=== PATIENT | female | born 1935 | race Caucasian/White ===

== ENCOUNTER → 2016-08-23 | Outpatient (CLI) | payer MEDICARE, OTHER ==
[~2016-08-23] VITALS: Ht 167.6 cm; Wt 84.4 kg
[~2016-08-23] MED LIST: ALLERGY RELIEF10 M1 PO; COLACE 100MG C100 MG PO; CYMBALTA30 MG PO; GLIPIZIDE ER2.5 MG PO; HYDROCODON-ACE1 EAC2 PO; IPRAT-ALBUT 0.5-3 ML INH; KEFLEX500 MG PO; LIORESAL TAB 1010 MG PO; LORTAB PO; MELOXICAM7.5 MG PO; MIRALAX PACK 171 PKT PO; MOBIC7.5 MG PO; NEURONTIN 400400 MG PO; NEURONTIN800 MG PO; NORCO 5-325 TA1 EACH PO; PREDNISONE 10 M10 MG PO; PROTONIX40 MG PO; REQUIP0.25 MG PO; RESTORIL 30 MG30 MG PO; SYNTHROID112 MCG PO; TRAZODONE HCL50 MG PO; TYLENOL 325MG325 MG PO; TYLENOL W/CODEIN1 E1 PO; VIBRAMYCIN 100100 MG PO; VITAMIN B-1000 MCG/M IM; ZANTAC 150 MG150 MG PO
== END ==
LOC: OPSV 10:00
DX: D83.9 Common variable immunodeficiency, unspecified (principal)
CPT/HCPCS: 96365; 96366; J1572; Q0163

== ENCOUNTER 2016-09-01 18:31 | Emergency (ER) | payer MEDICARE, OTHER ==
[~2016-09-01 18:31] MED LIST changes: -GLIPIZIDE ER2.5 MG PO; -NORCO 5-325 TA1 EACH PO
[2016-09-01 20:38] LABS: HEMOGLOBIN 12.9 gm/dl (12.3-15.3); RED BLOOD COUNT 4.19 M/UL (4.00-5.10); WHITE BLOOD COUNT 8.7 K/UL (4.5-11.0)
[2017-01-08] MEDS ORDERED: GLIPIZIDE ER2.5 MG PO (11:55)
[2017-01-08] MEDS ORDERED: NORCO 5-325 TA1 EACH PO (16:53)
== END 2016-09-01 23:27 | disposition home or self-care (01) ==
LOC: ER1 18:31
PROVIDERS: Family Medicine
DX: R10.13 Epigastric pain (principal); R06.02 Shortness of breath; E11.9 Type 2 diabetes mellitus without complications; Z86.79 Personal history of other diseases of the circulatory system; Z90.49 Acquired absence of other specified parts of digestive tract; Z85.038 Personal history of other malignant neoplasm of large intestine; Z88.0 Allergy status to penicillin; Z88.1 Allergy status to other antibiotic agents; Z88.8 Allergy status to other drugs, medicaments and biological substances; Z79.899 Other long term (current) drug therapy
CPT/HCPCS: 36415; 71020; 80053; 82550; 82553; 83874; 83880; 84484; 85025; 93005; 94664; 99285; C9113

== ENCOUNTER → 2016-09-20 | Outpatient (CLI) | payer MEDICARE, OTHER ==
[~2016-09-20] VITALS: Ht 167.6 cm; Wt 84.4 kg
[~2016-09-20] MED LIST changes: +GLIPIZIDE ER2.5 MG PO; +NORCO 5-325 TA1 EACH PO
== END ==
LOC: OPSV 09:50
DX: D83.9 Common variable immunodeficiency, unspecified (principal)
CPT/HCPCS: 96365; 96366; J1572; Q0163

== ENCOUNTER → 2016-10-20 | Outpatient (CLI) | payer MEDICARE, OTHER ==
[~2016-10-20] VITALS: Ht 167.6 cm; Wt 84.4 kg
== END ==
LOC: OPSV 10-18 10:00
DX: D83.9 Common variable immunodeficiency, unspecified (principal)
CPT/HCPCS: 96365; 96366; J1568; Q0163

== ENCOUNTER → 2016-11-29 | Outpatient (CLI) | payer MEDICARE, OTHER ==
[~2016-11-29] VITALS: Ht 167.6 cm; Wt 84.4 kg
== END ==
LOC: OPSV 10:00
DX: D83.9 Common variable immunodeficiency, unspecified (principal)
CPT/HCPCS: 96365; 96366; J1568; Q0163

== ENCOUNTER 2017-02-16 17:50 | Emergency (ER) | payer MEDICARE, OTHER | END 2017-02-16 21:00 | disposition home or self-care (01) | LOC: ER1 17:50 | DX: S92.352A Displaced fracture of fifth metatarsal bone, left foot, initial encounter for closed fracture (principal); S80.812A Abrasion, left lower leg, initial encounter; E11.9 Type 2 diabetes mellitus without complications; J44.9 Chronic obstructive pulmonary disease, unspecified; Z88.0 Allergy status to penicillin; Z88.8 Allergy status to other drugs, medicaments and biological substances; W10.9XXA Fall (on) (from) unspecified stairs and steps, initial encounter; Y92.009 Unspecified place in unspecified non-institutional (private) residence as the place of occurrence of the external cause | CPT/HCPCS: 73502; 73552; 73564; 73610; 73630; 82962; 99283 ==

== ENCOUNTER 2020-07-16 13:30 | Observation (INO) | payer MEDICARE, OTHER ==
[~2020-07-16] VITALS: Ht 167.6 cm; Wt 88.9 kg
[~2020-07-16 13:30] MED LIST changes: +ADVAIR HFA 230-28 GM INH; +AMITIZA24 MCG PO; +AZITHROMYCIN250 MG PO; +BACTRIM DS TAB1 EACH PO; +BENTYL 10MG CAP10 MG PO; +BIOTIN2500 MCG PO; +CYMBALTA60 MG PO; +DALIRESP500 MCG PO; +ELMIRON100 MG PO; +FLONASE ALLER15.8 ML; +GEODON20 MG PO; +INVANZ 1 GM VIAL1 GM IV; +JANUVIA100 MG PO; +KLOR-CON M1010 MEQ PO; +LASIX20 MG PO; +LEVOFLOXACIN500 MG PO; +LOPRESSOR 25 MG25 MG PO; +MACRODANTIN100 MG PO; +MEDROL DOSEPAK 24 MG PO; +MULTIVITAMINS1 EAC1 PO; +NEURONTIN400 MG PO; +PERCOCET 5-3251 EACH PO; +PRAMIPEXOLE DIHY1 MG PO; +PREDNISONE 20 M20 MG PO; +PREDNISONE10 MG PO; +PREDNISONE20 MG PO; +PROTONIX 40 MG40 M1 PO; -REQUIP0.25 MG PO; +REQUIP3 MG PO; +REXULTI 1 MG PO; +ROPINIROLE HCL0.5 MG PO; +SINGULAIR10 MG PO; +SPIRIVA HANDIH18 MCG INH; +SYMBICORT 16010.2 GM INH; +TESSALON PERLE100 MG PO; +TRAZODONE HCL100 MG PO; -TRAZODONE HCL50 MG PO; +TYLENOL PM EX-1 EACH PO; +VIBRAMYCIN100 MG PO; -VITAMIN B-1000 MCG/M IM; +VITAMIN C 500500 MG PO; +XYZAL5 MG PO; +ZOFRAN ODT 4 MG4 MG PO; +ZOFRAN4 MG PO
[2020-07-16 14:19] LABS: HEMOGLOBIN 10.2 gm/dl (12.3-15.3); RED BLOOD COUNT 4.49 M/UL (4.00-5.10); WHITE BLOOD COUNT 9.4 K/UL (4.5-11.0)
[2020-07-16 15:07] LABS: BUN/CREATININE RATIO 16 (0-10)
[2020-07-16] MEDS ORDERED: ASPIRIN EC81 MG PO (20:29)
[2020-07-16] MEDS ORDERED: MIRAPEX1 MG PO (20:30)
[2020-07-16] MEDS ORDERED: CYMBALTA60 MG PO (20:31)
[2020-07-16] MEDS ORDERED: LOPRESSOR 25 MG25 MG PO (20:32)
[2020-07-16] MEDS ORDERED: VALIUM5 MG PO (20:33)
[2020-07-16] MEDS ORDERED: MORPHINE SULFA100 M1 PO (20:34)
[2020-07-16] MEDS ORDERED: TRANSDERM-SCOP1 EACH TOP ×2 (20:35→21:26)
[2020-07-16] MEDS ORDERED: AMITIZA 24 MCG24 MCG PO (21:04)
[2020-07-16] MEDS ORDERED: SEROQUEL50 MG PO (21:05)
[2020-07-16] MEDS ORDERED: SEROQUEL25 MG PO (21:05)
[2020-07-16] MEDS ORDERED: ACETAMINOPHEN-1 EAC1 PO (21:27)
[2020-07-17 03:32] LABS: HEMOGLOBIN 8.3 gm/dl (12.3-15.3); RED BLOOD COUNT 3.61 M/UL (4.00-5.10); WHITE BLOOD COUNT 7.5 K/UL (4.5-11.0)
[2020-07-18] MEDS ORDERED: STIMULANT LAXA1 EACH PO (11:29)
== END 2020-07-18 14:30 | disposition home or self-care (01) ==
LOC: ER1 13:30 → CDU 18:25 → MED SURG 4 18:25
PROVIDERS: Student in an Organized Health Care Education/Training Program; ADMIT Internal Medicine
DX: N39.0 Urinary tract infection, site not specified (principal); K59.09 Other constipation; R11.10 Vomiting, unspecified; I50.32 Chronic diastolic (congestive) heart failure; E86.0 Dehydration; D83.9 Common variable immunodeficiency, unspecified; J44.9 Chronic obstructive pulmonary disease, unspecified; R53.2 Functional quadriplegia; K21.9 Gastro-esophageal reflux disease without esophagitis; J96.11 Chronic respiratory failure with hypoxia; J96.12 Chronic respiratory failure with hypercapnia; M81.0 Age-related osteoporosis without current pathological fracture; Z87.891 Personal history of nicotine dependence; Z51.5 Encounter for palliative care; Z74.01 Bed confinement status; Z88.0 Allergy status to penicillin; Z88.1 Allergy status to other antibiotic agents; Z88.8 Allergy status to other drugs, medicaments and biological substances; Z79.82 Long term (current) use of aspirin; Z79.891 Long term (current) use of opiate analgesic; Z79.899 Other long term (current) drug therapy; Z20.822 Contact with and (suspected) exposure to COVID-19; Z99.81 Dependence on supplemental oxygen; Z86.73 Personal history of transient ischemic attack (TIA), and cerebral infarction without residual deficits
CPT/HCPCS: 0240U; 36415; 71045; 73110; 80048; 80053; 81001; 82550; 82553; 82962; 83605; 83735; 83874; 84100; 84484; 85025; 87040; 87086; 93005; 96372; 96374; 99285; G0378; J1335; J1650; Q9967